=== PATIENT | female | born 1990 | race Hispanic/Latino ===

== ENCOUNTER 2019-07-27 09:37 | Outpatient (CLI) | payer MEDICAID ==
[2019-07-27] MEDS ORDERED: LACTATED RINGERS 500 ML IV ONE (09:46)
[2019-07-27] MEDS ORDERED: LACTATED RINGERS 1,000 ML ONE (10:17)
[2019-07-27 10:28] VITALS: BP 134/87
[2019-07-27 11:07] LABS: Bacteria,Urine 1+ /HPF (Negative); Bilirubin,Urine NEG (Negative); Blood,Urine NEG (Negative); Color,Urine Yellow (Yellow); Mucus,Urine FEW /HPF; Protein,Urine <15 mg/dL mg/dL (Negative); Urobilinogen,Urine < 2.0 mg/dL (<2.0)
== END 2019-07-27 11:55 | disposition home or self-care (01) ==
LOC: TRG 09:37
PROVIDERS: ATTEND Obstetrics & Gynecology
DX: O26.893 Other specified pregnancy related conditions, third trimester (principal); R55 Syncope and collapse; R11.0 Nausea; O47.03 False labor before 37 completed weeks of gestation, third trimester; Z3A.29 29 weeks gestation of pregnancy; Z87.891 Personal history of nicotine dependence
CPT/HCPCS: 81001; 82962; J7120; 96360